=== PATIENT | female | born 1990 | race Hispanic/Latino ===

== ENCOUNTER 2022-10-31 10:50 | Inpatient (IN) | payer OTHER ==
[2022-10-31] MEDS ORDERED: Iopamidol-370 76% 500 ML 1 ML ONE (11:00)
[2022-10-31 11:33] LABS: #Basophils 0.1 thou/uL (0.0-0.2); #Lymphocytes 0.3 thou/uL (1.20-3.40); #Monocytes 0.2 thou/uL (0.11-0.59); #Neutrophils 3.5 thou/uL (1.40-6.50); %Basophils 1.5 % (0.0-1.0); %Lymphocytes 6.1 % (21.0-51.0); %Monocytes 5.4 % (0.0-10.0); %Neutrophils 86.9 % (42.0-75.0); Hemoglobin 10.4 g/dL (12.0-16.0); Mean Corpuscular HGB CONC 33.8 g/dL (32.0-36.0); Mean Corpuscular Hemoglobin 29.7 pg (27.0-31.0); Mean Platelet Volume 7.3 fL (7.4-10.4); Platelet Count 304 10x3/uL (130-400); RBC Distribution Width 13.3 % (11.5-14.5); Red Blood Cell (RBC) Count 3.48 mill/uL (4.20-5.40)
[2022-10-31 11:51] LABS: BHCG - Serum Negative (NEGATIVE); Pregs Control Background? CLEAR/WHITE (CLR/WHITE); Pregs Control Bar Appear? YES (CONTROL BAR)
[2022-10-31 11:55] LABS: ALT (SGPT) 24 U/L (8-55); AST (SGOT) 77 U/L (5-34); Albumin 3.1 g/dL (3.5-5.0); Alkaline Phosphatase 50 U/L (40-110); Anion Gap 13 mmol/L (10-20); BUN (Urea Nitrogen) 20 mg/dL (7.0-18.7); Bilirubin, Total 0.3 mg/dL (0.2-1.2); Calc. Creatinine Clearance 0 mL/min (70-130); Calcium 7.9 mg/dL (7.8-10.44); Carbon Dioxide 18 mmol/L (22-29); Chloride 95 mmol/L (98-107); Estimated GFR 108; Globulin 4.3 g/dL (2.4-3.5); Glucose 88 mg/dL (70-105); Lipase 361 U/L (8-78); Potassium 3.8 mmol/L (3.5-5.1); Protein, Total 7.4 g/dL (6.0-8.3); Sodium 122 mmol/L (136-145)
[2022-10-31 13:15] LABS: Bilirubin Negative (Negative); Blood, Urine 1+ (Negative); Glucose, Urine (Dipstick) Normal (Negative); Ketone, Urine 10 mg/dL (Negative); Leukocyte Negative Leu/uL (Negative); Nitrite Negative (Negative); Protein, Urine (Dipstick) 100 mg/dL (Neg-Trace); RBC/HPF 0-3 HPF (0-3); Specific Gravity, Urine 1.021 (1.002-1.036); Squamous Epithelial 0-3 HPF (0-3); Urobilinogen Normal mg/dL (Less than 2)
[2022-10-31 13:24] LABS: Bacteria/HPF Rare-Few HPF (None Seen)
[2022-10-31 13:25] LABS: Clarity Cloudy (Clear)
[2022-10-31] MEDS ORDERED: predniSONE 20 MG TAB PO SCH ×2 (16:30→19:45)
[2022-10-31] MEDS ORDERED: Sodium Chloride 0.9% 1,000 ML IV SCH (16:30)
[2022-10-31] MEDS ORDERED: Lactated Ringer's 1,000 ML IV SCH (16:30)
[2022-10-31] MEDS ORDERED: Ondansetron ODT 4 MG TAB PO PRN (16:32)
[2022-10-31] MEDS ORDERED: Calcium Carbonate 500 MG ChewTAB PO PRN (16:32)
[2022-10-31] MEDS ORDERED: Ondansetron PF 4 MG/2 ML Vial IVP PRN (16:32)
[2022-10-31] MEDS ORDERED: Acetaminophen 325 MG TAB PO PRN (16:32)
[2022-10-31 16:54] LABS: Phosphorus 3.6 mg/dL (2.3-4.7)
[2022-10-31 18:42] LABS: Anion Gap 12 mmol/L (10-20); BUN (Urea Nitrogen) 16 mg/dL (7.0-18.7); Calc. Creatinine Clearance 0 mL/min (70-130); Calcium 7.1 mg/dL (7.8-10.44); Carbon Dioxide 17 mmol/L (22-29); Chloride 100 mmol/L (98-107); Estimated GFR 118; Glucose 71 mg/dL (70-105); Potassium 3.8 mmol/L (3.5-5.1); Sodium 125 mmol/L (136-145)
[2022-10-31] MEDS: Lactated Ringer's 1,000 ML IV SCH ×2 (19:43→22:15)
[2022-10-31 20:54] LABS: Anion Gap 11 mmol/L (10-20); BUN (Urea Nitrogen) 16 mg/dL (7.0-18.7); Calc. Creatinine Clearance 0 mL/min (70-130); Carbon Dioxide 15 mmol/L (22-29); Chloride 103 mmol/L (98-107); Estimated GFR 119; Glucose 93 mg/dL (70-105); Potassium 3.3 mmol/L (3.5-5.1); Sodium 126 mmol/L (136-145)
[2022-10-31 21:17] VITALS: BMI 22.6
[2022-10-31] MEDS ORDERED: Hydroxychloroquine Sulfate 200 MG TAB PO SCH (22:00)
[2022-10-31] MEDS: Calcium Carbonate 600 MG TAB PO SCH (22:14)
[2022-10-31] MEDS: Famotidine 20 MG TAB PO SCH (22:14)
[2022-10-31] MEDS: Potassium Bicarbonate/Cit Ac 20 MEQ TAB PO SCH (22:15)
[2022-10-31] MEDS: Heparin 5,000 UNITS/ML VIAL SC SCH (22:15)
[2022-10-31] MEDS ORDERED: Sodium Bicarb 50 MEQ/50 ML Abboject 8.4% SYRINGE IVP SCH (23:30)
[2022-10-31] MEDS ORDERED: Sodium Bicarb 50 MEQ/50 ML VIAL IVP SCH (23:45)
[2022-10-31] MEDS ORDERED: Albumin 25% 25 GM/100 ML BOT IVPB SCH (23:45)
[2022-10-31] MEDS ORDERED: Acetaminophen 325 MG TAB PO SCH (23:45)
[2022-10-31] MEDS: Cefepime 1 GM in Sodium Chloride 0.9% 100 ML IVPB SCH (23:49)
[2022-11-01 00:10] LABS: #Lymphocytes 0.4 thou/uL (1.20-3.40); #Monocytes 0.1 thou/uL (0.11-0.59); #Neutrophils 2.9 thou/uL (1.40-6.50); %Eosinophils 0.2 % (0.0-10.0); %Lymphocytes 11.1 % (21.0-51.0); %Monocytes 3.3 % (0.0-10.0); %Neutrophils 85.4 % (42.0-75.0); Hemoglobin 9.4 g/dL (12.0-16.0); Mean Corpuscular HGB CONC 35.7 g/dL (32.0-36.0); Mean Corpuscular Hemoglobin 31.5 pg (27.0-31.0); Mean Corpuscular Volume 88.2 fl (78.0-98.0); Mean Platelet Volume 7.1 fL (7.4-10.4); Platelet Count 308 10x3/uL (130-400); RBC Distribution Width 13.1 % (11.5-14.5); Red Blood Cell (RBC) Count 2.99 mill/uL (4.20-5.40); White Blood Cell (WBC) Count 3.4 10x3/uL (4.8-10.8)
[2022-11-01] MEDS ORDERED: Vancomycin 1.5 GRAM/300 ML BAG 1.5 GM in Premix Bag 1 BAG IVPB SCH (00:30)
[2022-11-01 00:35] LABS: Magnesium 1.7 mg/dL (1.6-2.6)
[2022-11-01 01:15] LABS: SARS-CoV-2 NAA Rapid Test Not Detected (NotDetected)
[2022-11-01] MEDS: Potassium Bicarbonate/Cit Ac 20 MEQ TAB PO SCH (01:18)
[2022-11-01] MEDS: Lactated Ringer's 1,000 ML IV SCH ×3 (01:21→15:45)
[2022-11-01 07:52] LABS: #Lymphocytes 0.4 thou/uL (1.20-3.40); #Monocytes 0.2 thou/uL (0.11-0.59); #Neutrophils 2.8 thou/uL (1.40-6.50); %Eosinophils 0.1 % (0.0-10.0); %Lymphocytes 11.4 % (21.0-51.0); %Monocytes 4.5 % (0.0-10.0); %Neutrophils 84.1 % (42.0-75.0); Hemoglobin 10.1 g/dL (12.0-16.0); Mean Corpuscular HGB CONC 34.4 g/dL (32.0-36.0); Mean Corpuscular Hemoglobin 30.3 pg (27.0-31.0); Mean Corpuscular Volume 88.2 fl (78.0-98.0); Mean Platelet Volume 7.7 fL (7.4-10.4); Platelet Count 300 10x3/uL (130-400); RBC Distribution Width 13.3 % (11.5-14.5); Red Blood Cell (RBC) Count 3.31 mill/uL (4.20-5.40); White Blood Cell (WBC) Count 3.3 10x3/uL (4.8-10.8)
[2022-11-01 08:12] LABS: Anion Gap 9 mmol/L (10-20); BUN (Urea Nitrogen) 13 mg/dL (7.0-18.7); Calc. Creatinine Clearance 135 mL/min (70-130); Calcium 7.4 mg/dL (7.8-10.44); Carbon Dioxide 21 mmol/L (22-29); Chloride 105 mmol/L (98-107); Estimated GFR 120; Glucose 130 mg/dL (70-105); Sodium 131 mmol/L (136-145)
[2022-11-01] MEDS: Calcium Carbonate 600 MG TAB PO SCH ×2 (08:22→21:28)
[2022-11-01] MEDS: Vancomycin 1 GM in Premix Bag 1 BAG IVPB SCH ×2 (08:22→17:16)
[2022-11-01] MEDS: Heparin 5,000 UNITS/ML VIAL SC SCH ×2 (08:23→21:28)
[2022-11-01] MEDS: Famotidine 20 MG TAB PO SCH ×2 (08:23→21:28)
[2022-11-01] MEDS: Hydroxychloroquine Sulfate 200 MG TAB PO SCH ×2 (08:23→21:28)
[2022-11-01] MEDS: predniSONE 20 MG TAB PO SCH (08:23)
[2022-11-01] MEDS: Cefepime 1 GM in Sodium Chloride 0.9% 100 ML IVPB SCH (12:51)
[2022-11-01] MEDS ORDERED: Cefepime 1 GM in Sodium Chloride 0.9% 100 ML IVPB SCH (13:00)
[2022-11-01] MEDS ORDERED: Ergocalciferol 1.25 MG(50,000 UNITS) CAP PO SCH (13:30)
[2022-11-01] MEDS ORDERED: Lactated Ringer's 1,000 ML IV SCH (13:32)
[2022-11-01 14:19] LABS: Anion Gap 9 mmol/L (10-20); BUN (Urea Nitrogen) 12 mg/dL (7.0-18.7); Calc. Creatinine Clearance 149 mL/min (70-130); Calcium 7.2 mg/dL (7.8-10.44); Carbon Dioxide 21 mmol/L (22-29); Chloride 104 mmol/L (98-107); Estimated GFR 123; Glucose 101 mg/dL (70-105); Potassium 3.9 mmol/L (3.5-5.1); Sodium 130 mmol/L (136-145)
[2022-11-01] MEDS: Albumin 25% 25 GM/100 ML BOT IVPB SCH ×2 (16:06→21:28)
[2022-11-01] MEDS: Cyanocobalamin (Vitamin B-12) 1,000 MCG TAB PO SCH (21:28)
[2022-11-01] MEDS: Multivit, Therapeutic 1 TAB PO SCH (21:28)
[2022-11-01] MEDS ORDERED: Cefepime 2 GM in Sodium Chloride 0.9% 100 ML IVPB SCH (23:59)
[2022-11-02 00:03] LABS: Vancomycin, Trough 29.8 ug/mL
[2022-11-02] MEDS: Lactated Ringer's 1,000 ML IV SCH ×2 (00:13→10:04)
[2022-11-02 06:20] LABS: #Lymphocytes 0.6 thou/uL (1.20-3.40); #Monocytes 0.3 thou/uL (0.11-0.59); #Neutrophils 2.9 thou/uL (1.40-6.50); %Basophils 0.1 % (0.0-1.0); %Eosinophils 0.1 % (0.0-10.0); %Monocytes 8.3 % (0.0-10.0); %Neutrophils 75.5 % (42.0-75.0); Hemoglobin 9.5 g/dL (12.0-16.0); Mean Corpuscular HGB CONC 33.7 g/dL (32.0-36.0); Mean Corpuscular Hemoglobin 30.2 pg (27.0-31.0); Mean Corpuscular Volume 89.6 fl (78.0-98.0); Mean Platelet Volume 7.1 fL (7.4-10.4); Platelet Count 337 10x3/uL (130-400); RBC Distribution Width 13.2 % (11.5-14.5); Red Blood Cell (RBC) Count 3.15 mill/uL (4.20-5.40); White Blood Cell (WBC) Count 3.8 10x3/uL (4.8-10.8)
[2022-11-02 06:44] LABS: Anion Gap 9 mmol/L (10-20); BUN (Urea Nitrogen) 11 mg/dL (7.0-18.7); Calc. Creatinine Clearance 146 mL/min (70-130); Calcium 7.9 mg/dL (7.8-10.44); Carbon Dioxide 22 mmol/L (22-29); Chloride 108 mmol/L (98-107); Estimated GFR 123; Glucose 98 mg/dL (70-105); Magnesium 1.8 mg/dL (1.6-2.6); Sodium 135 mmol/L (136-145)
[2022-11-02] MEDS: predniSONE 20 MG TAB PO SCH (07:22)
[2022-11-02] MEDS: Hydroxychloroquine Sulfate 200 MG TAB PO SCH ×2 (07:22→20:38)
[2022-11-02] MEDS: Famotidine 20 MG TAB PO SCH ×2 (07:22→20:39)
[2022-11-02] MEDS: Heparin 5,000 UNITS/ML VIAL SC SCH ×2 (07:22→20:39)
[2022-11-02] MEDS: Calcium Carbonate 600 MG TAB PO SCH ×2 (07:22→20:39)
[2022-11-02 08:12] LABS: Vancomycin, Random 19.1 ug/mL (See Comment)
[2022-11-02] MEDS ORDERED: Vancomycin 1 GM in Premix Bag 1 BAG IVPB SCH (09:00)
[2022-11-02] MEDS ORDERED: Electrolyte Replacement Protocol 1 EACH FS SCH (10:15)
[2022-11-02] MEDS ORDERED: Electrolyte Replacement Protocol FS PRN (10:30)
[2022-11-02] MEDS ORDERED: Magnesium 2 GM/50 ML(in water) 2 GM in Premix Bag 1 BAG IVPB SCH (11:00)
[2022-11-02] MEDS ORDERED: Vancomycin HCl 500 MG in Sodium Chloride 0.9% 100 ML IVPB SCH (12:00)
[2022-11-02 15:54] LABS: Complement-C4 5.7 mg/dL (15-57)
[2022-11-02] MEDS: Cyanocobalamin (Vitamin B-12) 1,000 MCG TAB PO SCH (20:38)
[2022-11-02] MEDS: Multivit, Therapeutic 1 TAB PO SCH (20:39)
[2022-11-02 21:07] LABS: Creatinine, Urine 55.42 mg/dL (47-110); Microalbumin/Creat Ratio 90.2 mg/g (Less than 30)
[2022-11-03 07:12] LABS: Anion Gap 10 mmol/L (10-20); BUN (Urea Nitrogen) 12 mg/dL (7.0-18.7); Calc. Creatinine Clearance 151 mL/min (70-130); Calcium 8.7 mg/dL (7.8-10.44); Carbon Dioxide 21 mmol/L (22-29); Chloride 111 mmol/L (98-107); Estimated GFR 124; Glucose 83 mg/dL (70-105); Potassium 3.6 mmol/L (3.5-5.1); Sodium 138 mmol/L (136-145)
[2022-11-03] MEDS: Famotidine 20 MG TAB PO SCH (08:39)
[2022-11-03] MEDS: Hydroxychloroquine Sulfate 200 MG TAB PO SCH (08:39)
[2022-11-03] MEDS: Calcium Carbonate 600 MG TAB PO SCH (08:39)
[2022-11-03] MEDS: Heparin 5,000 UNITS/ML VIAL SC SCH (08:40)
[2022-11-03] MEDS: predniSONE 20 MG TAB PO SCH (08:40)
[2022-11-03] MEDS ORDERED: Sodium Bicarbonate Tab 325 MG TAB PO SCH (09:00)
[2022-11-03 14:30] VITALS: BP 115/78; TEMP 98.5
[2022-11-08] MEDS ORDERED: Ergocalciferol 1.25 MG(50,000 UNITS) CAP PO SCH (09:00)
== END 2022-11-03 14:51 | DRG 641 ==
LOC: ERS 10:50 → EEVIPCON 10:50 → INTOOBSV 15:35 → ERHOLD 15:35 → EEVIPCON 16:18 → OBSVTOIN 16:18 → T4-A 21:16
PROVIDERS: ADMIT Internal Medicine; ATTEND Internal Medicine
DX: E86.0 Dehydration (principal); E44.0 Moderate protein-calorie malnutrition; E87.1 Hypo-osmolality and hyponatremia; Z20.822 Contact with and (suspected) exposure to COVID-19; M32.9 Systemic lupus erythematosus, unspecified; M06.9 Rheumatoid arthritis, unspecified; F41.9 Anxiety disorder, unspecified; E87.20 Acidosis, unspecified; I95.1 Orthostatic hypotension; D63.8 Anemia in other chronic diseases classified elsewhere; R80.9 Proteinuria, unspecified; E86.9 Volume depletion, unspecified; R59.0 Localized enlarged lymph nodes; E55.9 Vitamin D deficiency, unspecified; Z68.22 Body mass index [BMI] 22.0-22.9, adult; Z79.899 Other long term (current) drug therapy; Z79.51 Long term (current) use of inhaled steroids
CPT/HCPCS: 36415; 71045; 71275; 80048; 80053; 80202; 81003; 81015; 82040; 82043; 82306; 82533; 83605; 83690; 83735; 83880; 83930; 83935; 84100; 84300; 84443; 84484; 84703; 85025; 85379; 85652; 86140; 86160; 86225; 87040; 87081; 93005; 97139; J0692; J1644; J3370; J3370-JW; J3490; J7120; J7512; P9047; Q9967

== ENCOUNTER 2022-11-24 12:18 | Outpatient (CLI) | payer OTHER ==
[2022-11-24] MEDS ORDERED: Iopamidol-370 76% 500 ML 1 ML ONE (12:19)
== END 2022-11-24 12:19 | disposition home or self-care (01) ==
LOC: BICCT 12:18
PROVIDERS: ATTEND Nurse Practitioner Family
DX: L93.0 Discoid lupus erythematosus (principal); R91.1 Solitary pulmonary nodule
CPT/HCPCS: 71260; Q9967